=== PATIENT | male | born 1980 | race Caucasian/White ===

== ENCOUNTER 2020-03-07 13:36 | Outpatient (CLI) | payer BC ==
--- NOTE | 2020-03-07 14:24 | CT ---
CT abdomen and pelvis noncontrast HISTORY: Right flank pain. Hematuria. Kidney stones. Each renal collecting system, ureter, and urinary bladder incompletely distended. There are multiple calcifications within nondilated calyces of each kidney. On the right there are at least 7 calcifications. The largest is at the midportion the kidney measuring up to 0.8 cm. On the left, ther e are at least 5 calcifications, measuring up to 0.7 cm the inferior pole. No stones are evident within the bladder. Lack of contrast limits evaluation of the soft tissues. No evidence of bowel obstruction. Incidental note of a retroaortic left renal vein. There are degenerative changes of the lower lumbar spine and posterior bulge of the disc at the lumbosacral junction. IMPRESSION : Multiple nonobstructing bilateral renal calculi, measuring up to 0.8 cm greatest diameter.
== END 2020-03-07 13:37 | disposition home or self-care (01) ==
LOC: SCSCT 13:36
PROVIDERS: ATTEND Urology
DX: N20.0 Calculus of kidney (principal)
CPT/HCPCS: 74176